=== PATIENT | female | born 1995 | race Caucasian/White ===

== ENCOUNTER 2020-05-03 01:25 | Inpatient (IN) | payer BC ==
[2020-05-03] MEDS ORDERED: Nalbuphine 10 MG/ML Syringe IVPUSH PRN (07:04)
[2020-05-03] MEDS ORDERED: Ondansetron 4 MG/2 ML SDV IVPUSH PRN (07:04)
[2020-05-03] MEDS ORDERED: Sodium Chloride 0.9% 10 ML Syringe FLUSH PRN (07:04)
--- NOTE | 2020-05-03 07:07 | PCM.LDHP ---
L&D History of Present Illness - General Date of Service: 05/03/20 Admit Problem/Dx: Patient Status Order with Admit Dx/Problem 05/03/20 07:05 Patient Status [ADT] Routine Admission Diagnosis/Problem Admission Diagnosis/Problem Normal in third trimester Source of Information: Patient History Limitations: Reports: No Limitations - History of Present Illness Introduction:: Patient is a 25 y/o at 41 3/7 wks who presents for IOL for dates. Doing well today. No patterned contractions. No other concerns. - Related Data Allergies/Adverse Reactions: Allergies Allergy/AdvReac Type Severity Reaction Status Date / Time No Known Allergies Allergy Verified 05/03/20 08:56 Home Medications: Home Meds Prenat 115/Iron Fum/Folic/Dss [ 19 Tablet] 1 each PO DAILY 05/03/20 [ History] Past Medical History - Past Health History Medical/Surgical History: Denies Medical/Surgical History BUSINESS ENGLISH [employer] History: Reports: , Spontaneous : 4 Para: 2 LMP (Approximate): Social & Family History - Tobacco Use Smoking Status *Q: Never Smoker - Alcohol Use Alcohol Use History: No - Recreational Drug Use Recreational Drug Use: No H&P Review of Systems - Review of Systems: Review Of Systems: See Below General: Reports: No Symptoms Pulmonary: Reports: No Symptoms Cardiovascular: Reports: No Symptoms Gastrointestinal: Reports: Abdominal Pain Genitourinary: Reports: No Symptoms Musculoskeletal: Reports: No Symptoms Neurological: Reports: No Symptoms L&D Exam - Exam Exam: See Below - OB Specific Contraction Intensity: Irritability Movement: Active Heart Tones: Present Heart Tones per Min: 135 Heart Rate (FHR) Variability: Moderate (6-25 bmp) Presentation: Vertex - Florence Score Florence Score Cervix Position: Posterior Florence Score Consistency: Soft Florence Score Effacement: 51-70% Florence Score Dilation: 1-2 cm Florence Score Infant's Station: -1 ,0 Florence Score Total: 7 - Exam General: Alert, Oriented, Cooperative Lungs: Clear to Auscultation, Normal Respiratory Effort Cardiovascular: Regular Rate, Regular Rhythm GI/Abdominal Exam: Soft, Non-Tender Genitourinary: Normal external exam Extremities: Normal Inspection Skin: Warm, Dry, Intact - Patient Data Result Diagrams: 05/03/20 09:21 - Problem List (1) 41 weeks gestation of SNOMED Code(s): 17359069 ICD Code: Z3A.41 - 41 WEEKS GESTATION OF Status: Acute Current Visit: Yes Problem List Initiated/Reviewed/Updated: Yes Orders Last 24hrs: Active Orders 24 hr Category Date Time Status Patient Status [ADT] Routine ADT 05/03/20 07:05 Ordered Activity as Tolerated [RC] PFP Care 05/03/20 07:05 Ordered Communication Order [RC] ASDIRECTED Care 05/03/20 07:05 Ordered Heart Tones [RC] ASDIRECTED Care 05/03/20 07:05 Ordered Non Stress Test [RC] PER UNIT ROUTINE Care 05/03/20 07:05 Ordered Notify Provider [RC] PRN Care 05/03/20 07:05 Ordered Peripheral IV Care [RC] . DIRECTED Care 05/03/20 07:05 Ordered Vital Signs [RC] PER UNIT ROUTINE Care 05/03/20 07:05 Ordered Regular Diet [DIET] Diet 05/03/20 Breakfast Ordered CBC W/O DIFF,HEMOGRAM [HEME] Routine Lab 05/03/20 07:04 Ordered RAPID PLASMA REAGIN,RPR [CHEM] Routine Lab 05/03/20 07:05 Ordered TYPE AND SCREEN [BBK] Routine Lab 05/03/20 07:04 Ordered Lactated Ringers [Ringers, Lactated] 1,000 ml Med 05/03/20 07:15 Ordered IV ASDIRECTED Nalbuphine [Nubain] Med 05/03/20 07:04 Ordered 10 mg IVPUSH Q2H PRN Ondansetron [Zofran] Med 05/03/20 07:04 Ordered 4 mg IVPUSH Q4H PRN Oxytocin/Lactated Ringers [Pitocin in LR 10 Units/1,000 Med 05/03/20 07:15 Ordered ML] 10 unit in 1,000 ml IV .CONTINUOUS Sodium Chloride 0.9% [Saline Flush] Med 05/03/20 07:04 Ordered 10 ml FLUSH ASDIRECTED PRN Electronic Heart Tones Ext w TOCO [WOMSER] Oth 05/03/20 07:05 Ordered Routine Electronic Heart Tones Internal [WOMSER] Per Unit Oth 05/03/20 07:05 Ordered Routine Peripheral IV Insertion Adult [OM.PC] Routine Oth 05/03/20 07:05 Ordered Resuscitation Status Routine Resus Stat 05/03/20 07:04 Ordered Assessment/Plan Comment:: * Labs to be done * AROM for now. Will add in pitocin if needed * Pain management per patient preference * Anticipate
[2020-05-03] MEDS ORDERED: Oxytocin/Lactated Ringers 10 UNIT/1,000 ML BAG IV SCH ×2 (07:15→09:30)
[2020-05-03] MEDS ORDERED: Lactated Ringers 1,000 ML IV SCH (07:15)
--- NOTE | 2020-05-03 14:01 | PCM.DEL ---
L & D Note - General Info Date of Service: 05/03/20 - Delivery Note Labor: Induced by ARM, Induced by Oxytocin Delivery Outcome: Livebirth Infant Delivery Method: Spontaneous Vaginal Delivery-Single Infant Delivery Mode: Spontaneous Presentation: Left Occiput Anterior (DANA) Nuchal Cord: Present Anesthesia Type: None Amniotic Fluid Description: Clear Episiotomy Type: None Laceration: 1st Degree Suture type: Vicryl Suture size: 2-0 Placenta: Intact, Spontaneous Cord: 3 Vessels Estimated Blood Loss: 100 [place]: Bulb Syringe, Stimulated, Warmed, [place] Used, Warmer Used Delivery Comments (Free Text/Narrative):: Patient found to be complete and began pushing. With maternal pushing effort head delivered from an DANA presentation. No nuchal cord present. With gentle downward traction the shoulders and body delivered. placed on maternal abdomen. Cord clamped and cut. Cord blood obtained. Placenta allowed time to separate and expelled intact. Inspection of the perineum shows a first degree laceration which was hemostatic and so not repaired. - General Info Date of Service: 05/03/20 - Patient Data Vitals - Most Recent: Last Vital Signs Temp 36.5 C 05/03/20 07:05 Pulse Resp 14 05/03/20 07:05 BP 125/79 05/03/20 07:05 Pulse Ox 98 05/03/20 07:05 Weight - Most Recent: 96.343 kg Lab Results Last 24 Hours: Laboratory Results - last 24 hr 05/03/20 05/03/20 05/03/20 Range/Units 09:21 09:21 09:21 WBC 11.08 H (3.98-10.04) K/mm3 RBC 4.26 (3.98-5.22) M/mm3 Hgb 13.2 (11.2-15.7) gm/dl Hct 39.5 (34.1-44.9) % MCV 92.7 (79.4-94.8) fl MCH 31.0 (25.6-32.2) pg MCHC 33.4 (32.2-35.5) g/dl RDW Std Deviation 46.6 H (36.4-46.3) fL Plt Count 265 (182-369) K/mm3 MPV 10.7 (9.4-12.3) fl RPR Non-reactive (NONREACTIVE) Blood Type O NEGATIVE Gel Antibody Screen Negative Med Orders - Current: Current Medications Lactated Ringer's (Ringers, Lactated) 1,000 mls @ 100 mls/hr IV ASDIRECTED LIZZ Last Admin: 05/03/20 09:40 Dose: 100 mls/hr Oxytocin/Lactated Ringer's (Pitocin In Lr 10 Units/1,000 Ml) 10 unit in 1,000 mls @ 500 mls/hr IV .CONTINUOUS LIZZ Oxytocin/Lactated Ringer's (Pitocin In Lr 10 Units/1,000 Ml) 10 unit in 1,000 mls @ 12 mls/hr IV TITRATE LIZZ; Protocol Last Titration: 05/03/20 11:29 Dose: 6 munits/min, 36 mls/hr Nalbuphine HCl (Nubain) 10 mg IVPUSH Q2H PRN PRN Reason: Pain Ondansetron HCl (Zofran) 4 mg IVPUSH Q4H PRN PRN Reason: Nausea/Vomiting Sodium Chloride (Saline Flush) 10 ml FLUSH ASDIRECTED PRN PRN Reason: Keep Vein Open - Problem List & Annotations (1) 41 weeks gestation of SNOMED Code(s): 11190926 Code(s): Z3A.41 - 41 WEEKS GESTATION OF Status: Acute Current Visit: Yes (2) Vaginal delivery SNOMED Code(s): 385318765 Code(s): O80 - ENCOUNTER FOR FULL-TERM UNCOMPLICATED DELIVERY Status: Acute Current Visit: Yes - Problem List Review Problem List Initiated/Reviewed/Updated: Yes - My Orders Last 24 Hours: My Active Orders 05/03/20 07:04 Nalbuphine [Nubain] 10 mg IVPUSH Q2H PRN Ondansetron [Zofran] 4 mg IVPUSH Q4H PRN Sodium Chloride 0.9% [Saline Flush] 10 ml FLUSH ASDIRECTED PRN Resuscitation Status Routine 05/03/20 07:05 Patient Status [ADT] Routine Activity as Tolerated [RC] PFP Communication Order [RC] ASDIRECTED Non Stress Test [RC] PER UNIT ROUTINE Notify Provider [RC] PRN Peripheral IV Care [RC] . DIRECTED Vital Signs [RC] PER UNIT ROUTINE Electronic Heart Tones Ext w TOCO [WOMSER] Routine Electronic Heart Tones Internal [WOMSER] Per Unit Routine Peripheral IV Insertion Adult [OM.PC] Routine 05/03/20 07:15 Lactated Ringers [Ringers, Lactated] 1,000 ml IV ASDIRECTED Oxytocin/Lactated Ringers [Pitocin in LR 10 Units/1,000 ML] 10 unit in 1,000 ml IV .CONTINUOUS 05/03/20 09:30 Oxytocin/Lactated Ringers [Pitocin in LR 10 Units/1,000 ML] 10 unit in 1,000 ml IV TITRATE 05/03/20 10:50 PATIENT RETYPE [BBK] Routine 05/03/20 Breakfast Regular Diet [DIET] - Assessment Assessment:: PPD#0 - Plan Plan:: * Routine cares * Breast feeding * Discharge home in 1-2 days
[2020-05-03] MEDS ORDERED: Docusate Sodium 100 MG Cap PO PRN (14:40)
[2020-05-03] MEDS ORDERED: Benzocaine/Menthol 20%-0.5% Spray 56 GM Canister TOP PRN (14:40)
[2020-05-03] MEDS ORDERED: Witch Hazel Medicated Pads 40/Jar TOP PRN (14:40)
[2020-05-03] MEDS: Ibuprofen 600 MG Tab PO PRN ×2 (15:01→21:48)
[2020-05-03] MEDS ORDERED: Misoprostol 200 MCG Tab PO STA (18:04)
[2020-05-03] MEDS ORDERED: Misoprostol 200 MCG Tab ONE ×2 (18:14→19:47)
[2020-05-03] MEDS: Acetaminophen 325 MG Tab PO PRN ×2 (18:22→23:45)
[2020-05-03] MEDS ORDERED: Methylergonovine 0.2 MG/1 ML Amp ONE (19:48)
[2020-05-03] MEDS ORDERED: fentaNYL 100 MCG/2 ML SDV ONE (19:51)
[2020-05-03] MEDS: Methylergonovine 0.2 MG/1 ML Amp IM SCH ×2 (19:52→23:54)
[2020-05-03] MEDS ORDERED: ceFAZolin 2 GM in Premix Bag 1 BAG IV ONE (20:04)
[2020-05-03] MEDS ORDERED: fentaNYL 100 MCG/2 ML SDV IVPUSH ONE (20:04)
[2020-05-03] MEDS ORDERED: ceFAZolin/Dextrose,Iso-Osmotic 2 GM/50 ML Duplex Bag IV ONE (20:17)
--- NOTE | 2020-05-03 21:00 | PCM.SN.2 ---
- Free Text/Narrative Note: 2044 (late entry) Called by RN at 1800 that patient with a clot in toilet when up to use restroom. Already flushed. Was boggy at time of assessment. In to see pt. Currently reports feeling well. Flow seems appropriate. Given 600 mcg of cytotec and planned to continue to monitor closely. At 1944 called by RN that patient feeling a lot of perineal pressure up to bathroom and had large amount of bleeding and near syncopal episode. Got patient back into bed. Exam shows fragment of placenta felt above os. Patient given 100 mcg of IV fentanyl and manual removal done. Segment of placenta about 3 x 3 cm. Two additional sweeps done getting to fundus, but only with [address] to top. No additional placental remnants appreciated. Given .2 mg of IM methergine and plan to continue for 2 additional doses (3 total). Will given 2 grams of ancef. Will monitor bleedign closely. Patient made aware if continued concerns will need to proceed to OR for D&C. They agree. Martine Stanford MD
[2020-05-03] MEDS ORDERED: Ammonia Inhalant Amp ONE (21:39)
[2020-05-04] MEDS: Methylergonovine 0.2 MG/1 ML Amp IM SCH (04:19)
[2020-05-04] MEDS: Ibuprofen 600 MG Tab PO PRN ×2 (06:16→12:01)
--- NOTE | 2020-05-04 06:40 | PCM.PNPP ---
- General Info Date of Service: 05/04/20 Functional Status: Reports: Pain Controlled, Tolerating Diet, Ambulating, Urinating - Review of Systems General: Reports: No Symptoms Pulmonary: Reports: No Symptoms Cardiovascular: Reports: No Symptoms Gastrointestinal: Reports: No Symptoms Genitourinary: Reports: No Symptoms (bleeding minimal) Musculoskeletal: Reports: No Symptoms Neurological: Reports: No Symptoms - Patient Data Vital Signs - Most Recent: Last Vital Signs Temp 36.9 C 05/03/20 21:11 Pulse 86 05/03/20 21:11 Resp 16 05/03/20 20:21 BP 119/73 05/03/20 21:11 Pulse Ox 100 05/03/20 21:11 Weight - Most Recent: 96.343 kg I&O - Last 24 Hours: Intake & Output 05/03/20 05/03/20 05/04/20 14:59 22:59 06:59 Intake Total 0 Balance 0 Lab Results - Last 24 Hours: Laboratory Results - last 24 hr 05/03/20 05/03/20 05/03/20 Range/Units 09:21 09:21 09:21 WBC 11.08 H (3.98-10.04) K/mm3 RBC 4.26 (3.98-5.22) M/mm3 Hgb 13.2 (11.2-15.7) gm/dl Hct 39.5 (34.1-44.9) % MCV 92.7 (79.4-94.8) fl MCH 31.0 (25.6-32.2) pg MCHC 33.4 (32.2-35.5) g/dl RDW Std Deviation 46.6 H (36.4-46.3) fL Plt Count 265 (182-369) K/mm3 MPV 10.7 (9.4-12.3) fl RPR Non-reactive (NONREACTIVE) Blood Type O NEGATIVE Gel Antibody Screen Negative Med Orders - Current: Current Medications Acetaminophen (Tylenol) 650 mg PO Q4H PRN PRN Reason: mild pain or fever Last Admin: 05/03/20 23:45 Dose: 650 mg Benzocaine/Menthol (Dermoplast Pain Relief [place]) 0 gm TOP ASDIRECTED PRN PRN Reason: Perineal Comfort Measure Last Admin: 05/03/20 15:02 Dose: 1 can Docusate Sodium (Colace) 100 mg PO BID PRN PRN Reason: Constipation Ibuprofen (Motrin) 600 mg PO Q6H PRN PRN Reason: Mild pain or fever Last Admin: 05/04/20 06:16 Dose: 600 mg Witch [place] (Tucks) 1 pad TOP ASDIRECTED PRN PRN Reason: Perineal Comfort Measure Last Admin: 05/03/20 15:03 Dose: 1 tub Discontinued Medications Ammonia (Aromatic Spirit) (Ammonia Aromatic Inhalant) Confirm Administered Dose 1 ampule .ROUTE .STK-MED ONE Stop: 05/03/20 21:40 Last Admin: 05/03/20 22:37 Dose: Not Given Cefazolin Sodium/Dextrose (Ancef) Confirm Administered Dose 2 gm IV .STK-MED ONE Stop: 05/03/20 20:18 Last Admin: 05/03/20 22:36 Dose: Not Given Fentanyl (Sublimaze) Confirm Administered Dose 100 mcg .ROUTE .STK-MED ONE Stop: 05/03/20 19:52 Last Admin: 05/03/20 22:36 Dose: Not Given Fentanyl (Sublimaze) 100 mcg IVPUSH ONETIME ONE Stop: 05/03/20 20:05 Last Admin: 05/03/20 19:55 Dose: 100 mcg Lactated Ringer's (Ringers, Lactated) 1,000 mls @ 100 mls/hr IV ASDIRECTED LIZZ Last Admin: 05/03/20 09:40 Dose: 100 mls/hr Oxytocin/Lactated Ringer's (Pitocin In Lr 10 Units/1,000 Ml) 10 unit in 1,000 mls @ 500 mls/hr IV .CONTINUOUS LIZZ Oxytocin/Lactated Ringer's (Pitocin In Lr 10 Units/1,000 Ml) 10 unit in 1,000 mls @ 12 mls/hr IV TITRATE LIZZ; Protocol Last Titration: 05/03/20 13:46 Dose: 999 mls/hr Cefazolin Sodium/Dextrose 2 gm (/ Premix) 50 mls @ 100 mls/hr IV ONETIME ONE Stop: 05/03/20 20:33 Last Admin: 05/03/20 20:21 Dose: 100 mls/hr Methylergonovine Maleate (Methergine) Confirm Administered Dose 0.2 mg .ROUTE .STK-MED ONE Stop: 05/03/20 19:49 Last Admin: 05/03/20 20:31 Dose: Not Given Methylergonovine Maleate (Methergine) 0.2 mg IM Q4H LIZZ Stop: 05/04/20 04:16 Last Admin: 05/04/20 04:19 Dose: 0.2 mg Misoprostol (Cytotec) 600 mcg PO NOW STA Stop: 05/03/20 18:05 Last Admin: 05/03/20 18:16 Dose: 600 mcg Misoprostol (Cytotec) Confirm Administered Dose 400 mcg .ROUTE .STK-MED ONE Stop: 05/03/20 18:15 Last Admin: 05/03/20 20:18 Dose: Not Given Misoprostol (Cytotec) Confirm Administered Dose 600 mcg .ROUTE .STK-MED ONE Stop: 05/03/20 19:48 Last Admin: 05/03/20 20:31 Dose: Not Given Nalbuphine HCl (Nubain) 10 mg IVPUSH Q2H PRN PRN Reason: Pain Ondansetron HCl (Zofran) 4 mg IVPUSH Q4H PRN PRN Reason: Nausea/Vomiting Sodium Chloride (Saline Flush) 10 ml FLUSH ASDIRECTED PRN PRN Reason: Keep Vein Open - Infant Interaction Disposition, : [place] in Room with Family Interaction: Holding Infant Feeding: Breastfed Infant; Nursed Well Support Person: - Recovery Exam Fundal Tone: Firm Fundal Level: 1 Fingerbreadths Below Umbilicus Fundal Placement: Midline Lochia Amount: Small Lochia Color: Rubra/Red Episiotomy/Laceration: None Bladder Status: Voiding - Exam General: Alert, Oriented, Cooperative GI/Abdominal Exam: Soft, Non-Tender Extremities: Normal Inspection Skin: Warm, Dry, Intact - Problem List & Annotations (1) 41 weeks gestation of SNOMED Code(s): 63774114 Code(s): Z3A.41 - 41 WEEKS GESTATION OF Status: Acute (2) Vaginal delivery SNOMED Code(s): 088211771 Code(s): O80 - ENCOUNTER FOR FULL-TERM UNCOMPLICATED DELIVERY Status: Acute (3) Delayed hemorrhage SNOMED Code(s): 72225738 Code(s): O72.2 - DELAYED AND SECONDARY HEMORRHAGE Status: Acute - Problem List Review Problem List Initiated/Reviewed/Updated: Yes - My Orders Last 24 Hours: My Active Orders 05/03/20 07:04 Resuscitation Status Routine 05/03/20 07:05 Peripheral IV Care [RC] . DIRECTED 05/03/20 14:40 Activity as Tolerated [RC] PER UNIT ROUTINE Vital Signs [RC] 09,15,21,03 Acetaminophen [Tylenol] 650 mg PO Q4H PRN Benzocaine/Menthol [Dermoplast Pain Relief [place]] See Dose Instructions TOP ASDIRECTED PRN Docusate Sodium [Colace] 100 mg PO BID PRN Ibuprofen [Motrin] 600 mg PO Q6H PRN witch Santiago [Tucks] 1 pad TOP ASDIRECTED PRN Assess Lochia [WOMSER] Per Unit Routine Assess Uterine Involution [WOMSER] Per Unit Routine Breast Pump [WOMSER] Per Unit Routine Heat Therapy [OM.PC] PRN Ice Therapy [OM.PC] Per Unit Routine Perineal Care [OM.PC] Per Unit Routine Peripheral IV Discontinue [OM.PC] Routine Sitz Bath [OM.PC] Per Unit Routine 05/03/20 Dinner Regular Diet [DIET] 05/04/20 14:40 Heat Therapy [OM.PC] PRN - Assessment Assessment:: PPD#1 - Plan Plan:: * Patient has done well overnight. Received 3 doses of methergine. Appropriate /minimal bleeding. No feelings of dizziness, lightheadedness, chest pain, or SOB. No further lab work needed. If continues to do well will discharge home today. Patient given strict bleeding precautions * Breast feeding * Baby Rh negative, no need for Rhogam
--- NOTE | 2020-05-04 20:07 | PCM.DCSUM1 ---
Discharge Summary - Discharge Data Discharge Date: 05/04/20 Discharge Disposition: Home, Self-Care 01 Condition: Good - Referral to Home Health Primary Care Physician: Martine Stanford MD - Discharge Diagnosis/Problem(s) (1) 41 weeks gestation of SNOMED Code(s): 82219477 ICD Code: Z3A.41 - 41 WEEKS GESTATION OF Status: Acute (2) Vaginal delivery SNOMED Code(s): 116290412 ICD Code: O80 - ENCOUNTER FOR FULL-TERM UNCOMPLICATED DELIVERY Status: Acute (3) Delayed hemorrhage SNOMED Code(s): 67516516 ICD Code: O72.2 - DELAYED AND SECONDARY HEMORRHAGE Status: Acute - Patient Summary/Data Complications: None Consults: None Recommended Follow-up Testing/Procedures: Follow up in 3 weeks for check Hospital Course: 25 y/o at 41 3/7 wks who presented for IOL. This was done with AROM and pitocin. Made good change to complete dilation and underwent an uncomplicated . See delivery note. However, about 6 hours after delivery had poor tone and increased bleeding. Initially given cytotec and thought to respond well, but increased again later and noted to have small segment of placenta retained on exam. This was able to be manually removed. Given ancef, methergine for findings. Did well with minimal bleeding after these interventions. Desired discharge home and so was done on PPD#1 - Patient Instructions Diet: Regular Diet as Tolerated Activity: As Tolerated Activity, Other: Pelvic rest for 6 weeks Driving: May Drive Today Showering/Bathing: May Shower Showering/Bathing, Other: May bathe Notify Provider of: Fever, Increased Pain, Swelling and Redness, Drainage, Nausea and/or Vomiting - Discharge Plan *PRESCRIPTION DRUG MONITORING PROGRAM REVIEWED*: No *COPY OF PRESCRIPTION DRUG MONITORING REPORT IN PATIENT CANDICE: No Home Medications: Home Meds Prenat 115/Iron Fum/Folic/Dss [ 19 Tablet] 1 each PO DAILY 05/03/20 [ History] Ibuprofen [Motrin] 600 mg PO Q6H PRN tablet 05/04/20 [Rx] Patient Handouts: and Self-Care, Care After Vaginal Delivery Referrals: Martine Stanford MD [Primary Care Provider] - (3 weeks for check - can be telehealth) - Discharge Summary/Plan Comment DC Time >30 min.: No - Patient Data Vitals - Most Recent: Last Vital Signs Temp 36.9 C 05/04/20 13:25 Pulse 86 05/04/20 13:25 Resp 14 05/04/20 13:25 BP 107/66 05/04/20 13:25 Pulse Ox 99 05/04/20 13:25 Weight - Most Recent: 96.343 kg I&O - Last 24 hours: Intake & Output 05/04/20 05/04/20 05/04/20 06:59 14:59 22:59 Intake Total 120 120 Balance 120 120 Med Orders - Current: Current Medications Discontinued Medications Acetaminophen (Tylenol) 650 mg PO Q4H PRN PRN Reason: mild pain or fever Last Admin: 05/03/20 23:45 Dose: 650 mg Ammonia (Aromatic Spirit) (Ammonia Aromatic Inhalant) Confirm Administered Dose 1 ampule .ROUTE .STK-MED ONE Stop: 05/03/20 21:40 Last Admin: 05/03/20 22:37 Dose: Not Given Benzocaine/Menthol (Dermoplast Pain Relief [place]) 0 gm TOP ASDIRECTED PRN PRN Reason: Perineal Comfort Measure Last Admin: 05/03/20 15:02 Dose: 1 can Cefazolin Sodium/Dextrose (Ancef) Confirm Administered Dose 2 gm IV .STK-MED ONE Stop: 05/03/20 20:18 Last Admin: 05/03/20 22:36 Dose: Not Given Docusate Sodium (Colace) 100 mg PO BID PRN PRN Reason: Constipation Fentanyl (Sublimaze) Confirm Administered Dose 100 mcg .ROUTE .STK-MED ONE Stop: 05/03/20 19:52 Last Admin: 05/03/20 22:36 Dose: Not Given Fentanyl (Sublimaze) 100 mcg IVPUSH ONETIME ONE Stop: 05/03/20 20:05 Last Admin: 05/03/20 19:55 Dose: 100 mcg Lactated Ringer's (Ringers, Lactated) 1,000 mls @ 100 mls/hr IV ASDIRECTED LIZZ Last Admin: 05/03/20 09:40 Dose: 100 mls/hr Oxytocin/Lactated Ringer's (Pitocin In Lr 10 Units/1,000 Ml) 10 unit in 1,000 mls @ 500 mls/hr IV .CONTINUOUS LIZZ Oxytocin/Lactated Ringer's (Pitocin In Lr 10 Units/1,000 Ml) 10 unit in 1,000 mls @ 12 mls/hr IV TITRATE LIZZ; Protocol Last Titration: 05/03/20 13:46 Dose: 999 mls/hr Cefazolin Sodium/Dextrose 2 gm (/ Premix) 50 mls @ 100 mls/hr IV ONETIME ONE Stop: 05/03/20 20:33 Last Admin: 05/03/20 20:21 Dose: 100 mls/hr Ibuprofen (Motrin) 600 mg PO Q6H PRN PRN Reason: Mild pain or fever Last Admin: 05/04/20 12:01 Dose: 600 mg Methylergonovine Maleate (Methergine) Confirm Administered Dose 0.2 mg .ROUTE .STK-MED ONE Stop: 05/03/20 19:49 Last Admin: 05/03/20 20:31 Dose: Not Given Methylergonovine Maleate (Methergine) 0.2 mg IM Q4H LIZZ Stop: 05/04/20 04:16 Last Admin: 05/04/20 04:19 Dose: 0.2 mg Misoprostol (Cytotec) 600 mcg PO NOW STA Stop: 05/03/20 18:05 Last Admin: 05/03/20 18:16 Dose: 600 mcg Misoprostol (Cytotec) Confirm Administered Dose 400 mcg .ROUTE .STK-MED ONE Stop: 05/03/20 18:15 Last Admin: 05/03/20 20:18 Dose: Not Given Misoprostol (Cytotec) Confirm Administered Dose 600 mcg .ROUTE .STK-MED ONE Stop: 05/03/20 19:48 Last Admin: 05/03/20 20:31 Dose: Not Given Nalbuphine HCl (Nubain) 10 mg IVPUSH Q2H PRN PRN Reason: Pain Ondansetron HCl (Zofran) 4 mg IVPUSH Q4H PRN PRN Reason: Nausea/Vomiting Sodium Chloride (Saline Flush) 10 ml FLUSH ASDIRECTED PRN PRN Reason: Keep Vein Open [place]kortney Eliasel (Tucks) 1 pad TOP ASDIRECTED PRN PRN Reason: Perineal Comfort Measure Last Admin: 05/03/20 15:03 Dose: 1 tub
== END 2020-05-04 14:30 | disposition home or self-care (01) | DRG 560 ==
LOC: JD.OB 07:21 → OBSVTOIN 13:45 → JD.OB 13:45
PROVIDERS: ADMIT Obstetrics & Gynecology; ATTEND Obstetrics & Gynecology
PROC: 10E0XZZ Delivery of Products of Conception, External Approach (ICD-10-PCS; principal; 2020-05-03)
PROC: 10907ZC Drainage of Amniotic Fluid, Therapeutic from Products of Conception, Via Natural or Artificial Opening (ICD-10-PCS; 2020-05-03)
PROC: 3E033VJ Introduction of Other Hormone into Peripheral Vein, Percutaneous Approach (ICD-10-PCS; 2020-05-03)
DX: O48.0 Post-term pregnancy (principal); Z3A.41 41 weeks gestation of pregnancy; Z37.0 Single live birth; O72.2 Delayed and secondary postpartum hemorrhage; O70.0 First degree perineal laceration during delivery
CPT/HCPCS: 36415; 59025; 59409; 85027; 86592; 86850; 86900; 86901; A9270-GY; J0690; J2210; J2590; J3010; J7120

== ENCOUNTER 2022-09-15 13:30 | Inpatient (IN) | payer BC ==
[2022-09-15] MEDS ORDERED: Methylergonovine 0.2 MG/1 ML Amp IM ONE (15:20)
[2022-09-15] MEDS ORDERED: Ibuprofen 600 MG Tab PO ONE (16:55)
[2022-09-16] MEDS ORDERED: Ibuprofen 600 MG Tab PO ONE (00:01)
== END 2022-09-16 15:52 | disposition home or self-care (01) | DRG 560 ==
LOC: JD.OBCHECK 13:30 → JD.ZCENSUS 13:50 → OBSVTOIN 15:17
PROVIDERS: ATTEND Obstetrics & Gynecology
PROC: 10E0XZZ Delivery of Products of Conception, External Approach (ICD-10-PCS; principal; 2022-09-15)
PROC: 10907ZC Drainage of Amniotic Fluid, Therapeutic from Products of Conception, Via Natural or Artificial Opening (ICD-10-PCS; 2022-09-15)
DX: O77.0 Labor and delivery complicated by meconium in amniotic fluid (principal); Z3A.39 39 weeks gestation of pregnancy; Z37.0 Single live birth
CPT/HCPCS: 36415; 59025; 59409; 85461; 86850; 86900; 86901; A9270-GY; J2210; J2790

== ENCOUNTER 2024-07-26 23:41 | Inpatient (IN) | payer BC ==
[2024-07-27] MEDS ORDERED: Ondansetron 4 MG/2 ML SDV IVPUSH PRN (00:36)
[2024-07-27] MEDS ORDERED: Nalbuphine 10 MG/ML Syringe IVPUSH PRN (00:36)
[2024-07-27] MEDS ORDERED: Sodium Chloride 0.9% 10 ML Syringe FLUSH PRN (00:36)
[2024-07-27] MEDS ORDERED: Lidocaine 1% 50 ML MDV INJECT PRN (00:36)
[2024-07-27] MEDS ORDERED: Oxytocin/0.9 % Sodium Chloride 30 UNIT/500 ML BAG IV SCH (00:45)
[2024-07-27 00:56] LABS: BASOPHILS PERCENT AUTO 0.3 % (0.0-1.0); EOSINOPHILS ABSOLUTE AUTO 0.2 K/mm3 (0.0-0.4); EOSINOPHILS PERCENT AUTO 1.5 % (0.0-6.0); HEMATOCRIT 35.2 % (37.0-47.0); IMMATURE GRAN ABSOLUTE AUTO 0.06 K/mm3 (0.00-0.05); IMMATURE GRAN PERCENT AUTO 0.5 % (0.0-0.4); LYMPHOCYTES ABSOLUTE AUTO 2.8 K/mm3 (1.0-4.8); LYMPHOCYTES PERCENT AUTO 21.6 % (24.0-44.0); MEAN CORPUSCULAR HEMOGLOBIN 29.6 pg (28.0-32.0); MEAN CORPUSCULAR HGB CONC 34.1 g/dl (32.0-36.0); MEAN CORPUSCULAR VOLUME 86.7 fl (83.0-99.0); MEAN PLATELET VOLUME 10.5 fl (9.4-12.3); MONOCYTES ABSOLUTE AUTO 0.7 K/mm3 (0.0-0.8); MONOCYTES PERCENT AUTO 5.5 % (0.0-8.0); NEUTROPHILS ABSOLUTE AUTO 9.1 K/mm3 (1.8-7.7); NEUTROPHILS PERCENT AUTO 70.6 % (41.0-71.0); PLATELET COUNT,PLT 230 K/mm3 (150-400); RED BLOOD CELL COUNT 4.06 M/mm3 (4.10-5.30); WHITE BLOOD CELL COUNT,WBC 12.92 K/mm3 (3.9-11.3)
[2024-07-27 01:24] LABS: PROTHROMBIN TIME 9.8 SECONDS (9.7-12.0)
[2024-07-27 01:26] LABS: PTT,PARTIAL THROMBOPLSTIN TIME 26.2 SECONDS (21.7-31.4)
[2024-07-27 01:28] LABS: FIBRINOGEN 397 mg/dL (187-446)
[2024-07-27 01:31] LABS: INR < 0.93
[2024-07-27] MEDS: Lactated Ringers 1,000 ML IV SCH (02:24)
[2024-07-27] MEDS ORDERED: Benzocaine/Menthol 20%-0.5% Spray 78 GM Cannister TOP PRN (08:35)
[2024-07-27] MEDS ORDERED: Witch Hazel Medicated Pads 40/Jar TOP PRN (08:35)
[2024-07-27] MEDS: Ibuprofen 600 MG Tab PO SCH (08:47)
[2024-07-27] MEDS ORDERED: Sodium Chloride 0.9% 10 ML Syringe FLUSH SCH (09:00)
[2024-07-28] MEDS: Acetaminophen 325 MG Tab PO PRN (01:03)
[2024-07-28] MEDS: Docusate Sodium 100 MG Cap PO PRN (09:08)
== END 2024-07-28 18:15 | disposition home or self-care (01) | DRG 560 ==
LOC: JD.OBCHECK 23:41 → JD.OB 23:44 → JD.OBCHECK 07-27 00:30 → JD.OB 07-27 00:30 → OBSVTOIN 07-27 07:01 → JD.OB 07-27 07:02
PROVIDERS: ADMIT Obstetrics & Gynecology; ATTEND Obstetrics & Gynecology
PROC: 10E0XZZ Delivery of Products of Conception, External Approach (ICD-10-PCS; principal; 2024-07-27)
PROC: 10907ZC Drainage of Amniotic Fluid, Therapeutic from Products of Conception, Via Natural or Artificial Opening (ICD-10-PCS; 2024-07-27)
DX: O45.93 Premature separation of placenta, unspecified, third trimester (principal); O26.893 Other specified pregnancy related conditions, third trimester; Z67.41 Type O blood, Rh negative; O69.81X0 Labor and delivery complicated by cord around neck, without compression, not applicable or unspecified; Z37.0 Single live birth; Z3A.36 36 weeks gestation of pregnancy; O71.82 Other specified trauma to perineum and vulva; O60.13X0 Preterm labor second trimester with preterm delivery third trimester, not applicable or unspecified
CPT/HCPCS: 36415; 59025; 59409; 85025; 85384; 85461; 85610; 85730; 86592; 86850; 86870; 86900; 86901; A9270-GY; J2790; J7120